=== PATIENT | female | born 1970 | race Caucasian/White ===

== ENCOUNTER 2019-02-01 14:45 | Inpatient (IN) | payer OTHER ==
[~2019-02-01] VITALS: Ht 160 cm; Wt 59.9 kg
[~2019-02-01 14:45] MED LIST: CARAFATE1 G PO; PROTONIX40 MG PO
[2019-02-01] MEDS ORDERED: OMEPRAZOLE MAGN20 MG (15:15)
--- NOTE | 2019-02-01 15:20 | NUR ---
SE RECIBE PTE ALERTA Y ORIENTADA X3 LA CUAL REFIERE VENIR POR ANEMIA. PTE REFIERE LE REALIZARON UN CBC JUSTA EL JESUS DE HOY DONDE SALIO CON LA HBG EN 6. PTE REFIERE RENAY ESTADO CON SANGRADO VAGINAL/FIBROMA EL CUAL FUE OPERADA RECIENTEMENTE POR EL DR. TAMIR MURPHY. SE MIDEN S/V APTE Y SE COLOCA EN AREA DE OBSERVACION.
--- NOTE | 2019-02-01 16:24 | NUR ---
PT ALERTA Y ORIENTADA X3 ESFERAS SE LE ORIENTA SOBRE [place] Y REFIERE ENTEDER. SE LAUREN MUESTRAS DE ANA Y VNEOPUNCION CON TECNICA ASEPTCAS. PT [place].
[2019-02-06] MEDS ORDERED: OMEPRAZOLE MAGN20 MG PO (10:53)
[2019-02-06] MEDS ORDERED: MAXFE CAPLET1 EACH PO (12:53)
[2019-02-06] MEDS ORDERED: FERRLECIT62.5 MG/2 IV (12:53)
== END 2019-02-03 15:52 | DRG 812 ==
LOC: ER 14:45 → OB/GYN 19:07
PROVIDERS: ADMIT Obstetrics & Gynecology
PROC: BU4CZZZ Ultrasonography of Uterus and Ovaries (ICD-10-PCS; principal; 2019-02-01)
DX: D50.0 Iron deficiency anemia secondary to blood loss (chronic) (principal); N93.8 Other specified abnormal uterine and vaginal bleeding

== ENCOUNTER 2019-02-06 13:00 | Inpatient (IN) | payer OTHER ==
[~2019-02-06] VITALS: Ht 160 cm; Wt 59.9 kg
[~2019-02-06 13:00] MED LIST changes: +FERRLECIT62.5 MG/2 IV; +MAXFE CAPLET1 EACH PO; +OMEPRAZOLE MAGN20 MG; +OMEPRAZOLE MAGN20 MG PO
== END 2019-02-13 10:14 | disposition home or self-care (01) | DRG 743 ==
LOC: O/R 02-10 06:23 → OB/GYN 02-10 06:23 → SURH 02-10 16:12 → OB/GYN 02-13 10:14
PROVIDERS: ADMIT Obstetrics & Gynecology
PROC: 0DNW0ZZ Release Peritoneum, Open Approach (ICD-10-PCS; 2019-02-10)
PROC: 0UT90ZZ Resection of Uterus, Open Approach (ICD-10-PCS; principal; 2019-02-10 12:15)
DX: D25.1 Intramural leiomyoma of uterus (principal); N72 Inflammatory disease of cervix uteri; N80.0 Endometriosis of uterus; N73.6 Female pelvic peritoneal adhesions (postinfective)